=== PATIENT | female | born 1960 | race Caucasian/White ===

== ENCOUNTER 2016-11-13 07:43 | Emergency (ER) | payer OTHER | END 2016-11-13 10:35 | disposition home or self-care (01) | LOC: ER 07:43 | DX: J06.9 Acute upper respiratory infection, unspecified (principal); R05 Cough; R52 Pain, unspecified; E11.9 Type 2 diabetes mellitus without complications; K21.9 Gastro-esophageal reflux disease without esophagitis; Z90.49 Acquired absence of other specified parts of digestive tract; Z98.890 Other specified postprocedural states; Z88.6 Allergy status to analgesic agent; Z88.5 Allergy status to narcotic agent; Z79.4 Long term (current) use of insulin; Z79.899 Other long term (current) drug therapy | CPT/HCPCS: 87400; 99283 ==